=== PATIENT | male | born 1995 | race Caucasian/White ===

== ENCOUNTER 2025-05-27 18:23 | Emergency (ER) | payer OTHER ==
[~2025-05-27] VITALS: Ht 185.4 cm; Wt 71.2 kg
[2025-05-27 20:40] VITALS: TEMP 98.4
[2025-05-27] MEDS ORDERED: DIPH25TA25 PO (20:57)
[2025-05-27] MEDS ORDERED: IBUP-1490 PO (20:57)
[2025-05-27] MEDS ORDERED: CEPH-570 PO (20:57)
[2025-05-27] MEDS ORDERED: KETOROLAC TROMETHAMINE 15 MG/ML VIAL ONE (21:06)
[2025-05-27] MEDS ORDERED: LIDOCAINE VISCOUS 2% UD 15 ML UDC ONE (21:06)
[2025-05-27] MEDS: KETOROLAC TROMETHAMINE 15 MG/ML VIAL IM ONE (21:11)
[2025-05-27] MEDS: LIDOCAINE VISCOUS 2% UD 15 ML UDC MM ONE (21:11)
[2025-05-27 21:15] VITALS: BP 120/79; O2SAT 98
== END 2025-05-27 22:01 | disposition home or self-care (01) ==
LOC: ER 18:30
DX: J02.9 Acute pharyngitis, unspecified (principal); Z88.0 Allergy status to penicillin; Z60.2 Problems related to living alone
CPT/HCPCS: 99283; 96372; 87070; 87880; J1885; 86403-TC

== ENCOUNTER 2025-05-31 08:08 | Emergency (ER) | payer OTHER ==
[~2025-05-31] VITALS: Ht 210.8 cm; Wt 71.2 kg
[~2025-05-31 08:08] MED LIST: CEPH-570 PO; DIPH25TA25 PO; IBUP-1490 PO
[2025-05-31 08:10] VITALS: BP 118/69; TEMP 98.3
[2025-05-31] MEDS ORDERED: CLIN150C16 PO (08:50)
[2025-05-31] MEDS ORDERED: CLINDAMYCIN HCL 150 MG CAPSULE ONE (08:55)
[2025-05-31] MEDS ORDERED: dexAMETHasone 1 MG/ML UDC ONE (08:55)
[2025-05-31] MEDS: dexAMETHasone 1 MG/ML UDC PO ONE (09:00)
[2025-05-31] MEDS: CLINDAMYCIN HCL 150 MG CAPSULE PO ONE (09:00)
[2025-05-31 09:03] VITALS: O2SAT 98
[2025-05-31 11:05] LABS: MONOTEST NEGATIVE (NEGATIVE)
== END 2025-05-31 09:04 | disposition home or self-care (01) ==
LOC: ER 08:13
DX: J02.9 Acute pharyngitis, unspecified (principal); J35.8 Other chronic diseases of tonsils and adenoids; Z88.0 Allergy status to penicillin; Z91.09 Other allergy status, other than to drugs and biological substances; Z60.2 Problems related to living alone
CPT/HCPCS: 99283; 86308; 36415; J8540